=== PATIENT | male | born 1950 | race African-American/Black ===

== ENCOUNTER 2017-03-01 07:58 | Emergency (ER) | payer OTHER ==
[~2017-03-01] VITALS: Ht 157.5 cm; Wt 88.4 kg
[~2017-03-01 07:58] MED LIST: AMLODIPINE BESY10 MG PO; ASPIRIN325 MG PO; ATARAX,VISTARIL25 MG PO; ATORVASTATIN CA10 MG PO; CLOPIDOGREL75 MG PO; LITE COAT ASPI325 M1 PO; LOSARTAN-HCTZ1 EACH PO; NAPROXEN SODIU550 MG PO; PLAVIX75 MG PO
[2017-03-01 09:10] LABS: HEMATOCRIT 40.7 % (38.0-50.0); MCH 29.6 PG (29.0-34.0); MCHC 34.4 G/DL (30.0-36.0); MEAN PLAT.VOLUME 9.4 uM^3 (9.0-12.4); PLATELET COUNT 254 K/uL (156-360); RBC DIS.WIDTH-CV 13.2 % (11.8-14.6); RBC DIS.WIDTH-SD 41.1 % (39-53); RED BLOOD COUNT 4.73 M/uL (4.00-5.50); WHITE BLOOD COUNT 8.7 K/uL (4.1-10.2)
[2017-03-01 09:20] LABS: INTER. NORMALIZED RATIO 1.1; PROTHROMBIN TIME 10.9 (9.2-11.2); PTT 24.3 (25-32)
[2017-03-01 09:37] LABS: CHLORIDE 107 mEq/L (99-109); POTASSIUM 3.5 mEq/L (3.7-5.4); SODIUM 140 mEq/L (136-147)
[2017-03-01 09:42] LABS: ANION GAP 9 MEQ/L (2-14); GFR ESTIMATE (CALCULATED) > 59 mL/min/
[2017-03-01 09:43] LABS: UREA NITROGEN (BUN) 15 mg/dL (9-23)
[2017-03-01 09:51] LABS: TROP-I INTERPRETATION NEGATIVE; TROPONIN-I < 0.01 ng/mL (0.0-0.30)
[2017-03-01 10:24] LABS: GLUCOSE 95 mg/dL (70-99)
[2017-03-01] MEDS ORDERED: TRAMADOL HCL50 MG PO (11:06)
[2017-03-01] MEDS ORDERED: NAPROSYN500 MG PO (11:06)
[2017-03-01 11:22] VITALS: BP 109/76
== END 2017-03-01 11:23 | disposition home or self-care (01) ==
LOC: EME 07:58
PROVIDERS: Physician Assistant
DX: M79.89 Other specified soft tissue disorders (principal); R07.9 Chest pain, unspecified; R06.02 Shortness of breath
CPT/HCPCS: 71020; 80048; 83880; 84484; 85027; 85610; 85730; 93005; 93971; 99281; 99285

== ENCOUNTER 2017-03-15 16:54 | Emergency (ER) | payer OTHER ==
[~2017-03-15] VITALS: Ht 157.5 cm; Wt 86.2 kg
[~2017-03-15 16:54] MED LIST changes: +NAPROSYN500 MG PO; +TRAMADOL HCL50 MG PO
[2017-03-15] MEDS ORDERED: PERCOCET 5/31 TABLET PO (20:58)
[2017-03-15 21:02] VITALS: BP 137/85
== END 2017-03-15 21:04 | disposition home or self-care (01) ==
LOC: EME 16:54
DX: M54.32 Sciatica, left side (principal); M79.605 Pain in left leg; Z87.891 Personal history of nicotine dependence
CPT/HCPCS: 72100; 99281; 99284; J1100

== ENCOUNTER 2017-06-21 08:32 | Observation (INO) | payer OTHER ==
[~2017-06-21] VITALS: Ht 157.5 cm; Wt 86.8 kg
[~2017-06-21 08:32] MED LIST changes: +PERCOCET 5/31 TABLET PO
[2017-06-21] MEDS ORDERED: LIDODERM 5% P1 PATCH TD (10:03)
[2017-06-21 10:31] LABS: HEMATOCRIT 38.2 % (38.0-50.0); MCV 88.2 FL (86-99); MEAN PLAT.VOLUME 8.9 uM^3 (9.0-12.4); PLATELET COUNT 241 K/uL (156-360); RBC DIS.WIDTH-CV 14.2 % (11.8-14.6); RBC DIS.WIDTH-SD 45.9 % (39-53); RED BLOOD COUNT 4.33 M/uL (4.00-5.50); WHITE BLOOD COUNT 9.6 K/uL (4.1-10.2)
[2017-06-21 10:38] LABS: CHLORIDE 100 mEq/L (99-109); SODIUM 135 mEq/L (136-147)
[2017-06-21 10:40] LABS: GLUCOSE 95 mg/dL (70-99)
[2017-06-21 10:41] LABS: ANION GAP 9 MEQ/L (2-14)
[2017-06-21 10:44] LABS: GFR ESTIMATE (CALCULATED) > 59 mL/min/
[2017-06-21 10:45] LABS: UREA NITROGEN (BUN) 14 mg/dL (9-23)
[2017-06-21 10:57] LABS: ADD MIUA? NO; BILIRUBIN NEGATIVE; BLOOD NEGATIVE; COLOR STRAW ((YELLOW)); GLUCOSE (STRIP) NEGATIVE; KETONES NEGATIVE; LEUKOCYTES NEGATIVE; NITRITE NEGATIVE; PROTEIN (STRIP) NEGATIVE; SPECIFIC GRAVITY 1.014 (1.000-1.030); UROBILINOGEN 0.2 MG/DL (0.2-1.0)
[2017-06-21 12:36] LABS: C-REACTIVE PROTEIN < 1.0 MG/L (0-10)
[2017-06-21 15:50] VITALS: BP 122/75
[2017-06-21 19:51] VITALS: BP 100/61
[2017-06-22 00:16] VITALS: BP 98/62
[2017-06-22 04:31] VITALS: BP 103/59
[2017-06-22 07:08] LABS: HEMATOCRIT 40.9 % (38.0-50.0); MCH 30.5 PG (29.0-34.0); MCHC 34.2 G/DL (30.0-36.0); MCV 89.1 FL (86-99); MEAN PLAT.VOLUME 9.5 uM^3 (9.0-12.4); PLATELET COUNT 271 K/uL (156-360); RBC DIS.WIDTH-CV 14.3 % (11.8-14.6); RBC DIS.WIDTH-SD 46.1 % (39-53); RED BLOOD COUNT 4.59 M/uL (4.00-5.50); WHITE BLOOD COUNT 24.6 K/uL (4.1-10.2)
[2017-06-22 07:32] VITALS: BP 113/68
[2017-06-22 07:32] LABS: ANION GAP 12 MEQ/L (2-14); CHLORIDE 100 MEQ/L (99-109); GFR ESTIMATE (CALCULATED) > 59 mL/min/; GLUCOSE 92 mg/dL (70-99); POTASSIUM 4.4 MEQ/L (3.7-5.4); SAMPLE HEMOLYSIS CHECK 0; SAMPLE ICTERIC CHECK 0; SAMPLE LIPEMIA CHECK 0; SODIUM 135 MEQ/L (136-147)
[2017-06-22 07:36] LABS: UREA NITROGEN (BUN) 22 mg/dL (9-23)
[2017-06-22 11:30] VITALS: BP 136/78
[2017-06-22] MEDS ORDERED: LYRICA50 MG PO (13:58)
[2017-06-22 16:08] VITALS: BP 101/57
[2017-06-23 00:31] VITALS: BP 103/63
[2017-06-23 04:23] VITALS: BP 115/75
[2017-06-23 07:52] VITALS: BP 124/77
[2017-06-23] MEDS ORDERED: ASPIRIN81 M2 PO (10:10)
[2017-06-23] MEDS ORDERED: ATARAX,VISTARIL25 MG PO (10:11)
[2017-06-23] MEDS ORDERED: ENDOCET 7.5-321 EACH PO (10:13)
[2017-06-23] MEDS ORDERED: HYDROCHLOROTH12.5 M3 PO (10:13)
[2017-06-23] MEDS ORDERED: FLONASE16 G1 BOTH NARES (10:13)
[2017-06-23] MEDS ORDERED: METHOCARBAMOL500 MG PO (10:14)
[2017-06-23] MEDS ORDERED: GABAPENTIN300 MG PO (10:15)
[2017-06-23] MEDS ORDERED: VITAMIN B-625 MG PO (10:16)
[2017-06-23 12:16] VITALS: BP 92/56
[2017-06-23] MEDS ORDERED: CYCLOBENZAPRINE10 MG PO (13:18)
[2017-06-23 16:00] VITALS: BP 92/50
[2017-06-23 19:21] VITALS: BP 128/67
[2017-06-24 04:10] VITALS: BP 101/65
[2017-06-24 08:40] VITALS: BP 118/71
[2017-06-24 11:48] VITALS: BP 124/68
== END 2017-06-24 13:28 | disposition home or self-care (01) ==
LOC: EME 08:32 → 5WEST 14:58 → EDOF 14:58 → ENRESERV 15:03 → 5WEST 15:46 → ENPENDDIS 06-24 13:15 → 5WEST 06-24 13:28
PROVIDERS: Internal Medicine; Nurse Practitioner Family
DX: M51.17 Intervertebral disc disorders with radiculopathy, lumbosacral region (principal); M48.06 Spinal stenosis, lumbar region; E88.2 Lipomatosis, not elsewhere classified; M79.605 Pain in left leg; G89.29 Other chronic pain; K59.00 Constipation, unspecified; I10 Essential (primary) hypertension; Z86.73 Personal history of transient ischemic attack (TIA), and cerebral infarction without residual deficits; Z79.02 Long term (current) use of antithrombotics/antiplatelets; Z87.898 Personal history of other specified conditions; Z79.82 Long term (current) use of aspirin
CPT/HCPCS: 72148; 80048; 81003; 85027; 86140; 97530 GO; 99281; 99285; G0378; G8978 GP CI; G8979 GP CH; G8980 GP CI; G8987 GO CJ; G8988 CI; G8989 GO CI; J1100; J1200; J1650; J1885; J2270; J2930; J3010

== ENCOUNTER 2017-06-30 23:04 | Emergency (ER) | payer OTHER ==
[~2017-06-30] VITALS: Ht 157.5 cm; Wt 84.8 kg
[~2017-06-30 23:04] MED LIST changes: +ASPIRIN81 M2 PO; +CYCLOBENZAPRINE10 MG PO; +ENDOCET 7.5-321 EACH PO; +FLONASE16 G1 BOTH NARES; +GABAPENTIN300 MG PO; +HYDROCHLOROTH12.5 M3 PO; +LIDODERM 5% P1 PATCH TD; +LYRICA50 MG PO; +METHOCARBAMOL500 MG PO; +VITAMIN B-625 MG PO
[2017-07-01 00:11] LABS: ADD MIUA? YES; BILIRUBIN NEGATIVE; BLOOD NEGATIVE; COLOR YELLOW ((YELLOW)); GLUCOSE (STRIP) NEGATIVE; KETONES NEGATIVE; LEUKOCYTES NEGATIVE; NITRITE NEGATIVE; PROTEIN (STRIP) NEGATIVE; SPECIFIC GRAVITY 1.019 (1.000-1.030); UROBILINOGEN 0.2 MG/DL (0.2-1.0)
[2017-07-01 00:17] LABS: BACTERIA NONE SEEN /HPF; EPITHELIAL CELLS NONE SEEN /HPF; MUCUS TRACE /LPF; RED BLOOD CELLS 0-5 /HPF (0-5); UCUL ADDED? NO; WHITE BLOOD CELLS 0-5 /HPF (0-5)
[2017-07-01] MEDS ORDERED: DILAUDID2 MG PO (00:39)
[2017-07-01 01:39] VITALS: BP 140/89
== END 2017-07-01 01:43 | disposition home or self-care (01) ==
LOC: EME → EDBD 23:04 → EME 23:04
PROVIDERS: Emergency Medicine
DX: M54.42 Lumbago with sciatica, left side (principal); G89.29 Other chronic pain; I10 Essential (primary) hypertension; Z86.73 Personal history of transient ischemic attack (TIA), and cerebral infarction without residual deficits; Z87.891 Personal history of nicotine dependence
CPT/HCPCS: 81003; 99281; 99284

== ENCOUNTER 2017-07-06 06:45 | Emergency (ER) | payer OTHER ==
[~2017-07-06] VITALS: Ht 157.5 cm; Wt 84.9 kg
[~2017-07-06 06:45] MED LIST changes: +DILAUDID2 MG PO
[2017-07-06] MEDS ORDERED: LYRICA100 MG PO (07:22)
[2017-07-06] MEDS ORDERED: FLEXERIL10 MG PO (07:22)
[2017-07-06] MEDS ORDERED: LIDODERM 5% P1 PATCH TD (07:22)
[2017-07-06 07:55] VITALS: BP 107/78
== END 2017-07-06 07:56 | disposition home or self-care (01) ==
LOC: EME 06:45
DX: M54.32 Sciatica, left side (principal); Z95.1 Presence of aortocoronary bypass graft; Z79.82 Long term (current) use of aspirin
CPT/HCPCS: 99281; 99284

== ENCOUNTER 2017-07-12 22:38 | Emergency (ER) | payer OTHER ==
[~2017-07-12] VITALS: Ht 157.5 cm; Wt 86.3 kg
[~2017-07-12 22:38] MED LIST changes: +FLEXERIL10 MG PO; +LYRICA100 MG PO
[2017-07-13] MEDS ORDERED: PERCOCET 5/31 TABLET PO (01:25)
[2017-07-13] MEDS ORDERED: SKELAXIN800 MG PO (01:25)
[2017-07-13 02:00] VITALS: BP 111/85
== END 2017-07-13 02:07 | disposition home or self-care (01) ==
LOC: EME 22:38
DX: M54.42 Lumbago with sciatica, left side (principal); E78.5 Hyperlipidemia, unspecified; I10 Essential (primary) hypertension; Z86.73 Personal history of transient ischemic attack (TIA), and cerebral infarction without residual deficits; Z79.82 Long term (current) use of aspirin
CPT/HCPCS: 99281; 99284; J3010

== ENCOUNTER 2017-08-17 10:40 | Day surgery (SDC) | payer OTHER ==
[~2017-08-17] VITALS: Ht 157.5 cm; Wt 86.2 kg
[~2017-08-17 10:40] MED LIST changes: +HYZAAR 50-121 TABLET PO; +LIPITOR10 MG PO; +MICROZIDE12.5 M1 PO; +NORVASC10 MG PO; +SKELAXIN800 MG PO
[2017-08-17] MEDS ORDERED: MOTRIN600 MG PO (11:08)
== END 2017-08-17 12:10 | disposition home or self-care (01) ==
LOC: PAIN 10:40 → SDC 11:15 → PAIN 12:10
DX: M47.816 Spondylosis without myelopathy or radiculopathy, lumbar region (principal); M54.5 Low back pain; G89.29 Other chronic pain; M51.36 Other intervertebral disc degeneration, lumbar region; M48.061 Spinal stenosis, lumbar region without neurogenic claudication; E66.3 Overweight; Z68.34 Body mass index [BMI] 34.0-34.9, adult; I10 Essential (primary) hypertension; E78.5 Hyperlipidemia, unspecified; Z79.01 Long term (current) use of anticoagulants; Z86.73 Personal history of transient ischemic attack (TIA), and cerebral infarction without residual deficits; Z87.891 Personal history of nicotine dependence; Z79.891 Long term (current) use of opiate analgesic; Z79.82 Long term (current) use of aspirin; Z79.02 Long term (current) use of antithrombotics/antiplatelets
CPT/HCPCS: J1030; J2250; J3010; S0020

== ENCOUNTER 2017-09-08 07:42 | Day surgery (SDC) | payer OTHER ==
[~2017-09-08] VITALS: Ht 157.5 cm; Wt 86.2 kg
[~2017-09-08 07:42] MED LIST changes: +LO-DOSE ASPIRIN81 M1 PO; +MOTRIN600 MG PO
== END 2017-09-08 10:20 | disposition home or self-care (01) ==
LOC: PAIN 07:42 → SDC 08:15 → PAIN 10:20
DX: M53.3 Sacrococcygeal disorders, not elsewhere classified (principal); M46.1 Sacroiliitis, not elsewhere classified; M47.816 Spondylosis without myelopathy or radiculopathy, lumbar region; M54.41 Lumbago with sciatica, right side; G89.29 Other chronic pain; M48.061 Spinal stenosis, lumbar region without neurogenic claudication; I10 Essential (primary) hypertension; E78.5 Hyperlipidemia, unspecified; B18.2 Chronic viral hepatitis C; F43.22 Adjustment disorder with anxiety; Z79.02 Long term (current) use of antithrombotics/antiplatelets; Z87.891 Personal history of nicotine dependence; Z79.891 Long term (current) use of opiate analgesic; Z79.82 Long term (current) use of aspirin
CPT/HCPCS: J1030; J2250; J3010; S0020

== ENCOUNTER 2017-10-13 07:39 | Day surgery (SDC) | payer OTHER ==
[~2017-10-13] VITALS: Ht 157.5 cm; Wt 81.6 kg
[~2017-10-13 07:39] MED LIST changes: +ROBAXIN500 MG PO
== END 2017-10-13 09:17 | disposition home or self-care (01) ==
LOC: PAIN 07:39 → SDC 08:15 → PAIN 09:17
DX: M47.816 Spondylosis without myelopathy or radiculopathy, lumbar region (principal); G89.29 Other chronic pain; M54.5 Low back pain; M48.061 Spinal stenosis, lumbar region without neurogenic claudication; M51.36 Other intervertebral disc degeneration, lumbar region; M53.3 Sacrococcygeal disorders, not elsewhere classified; B18.2 Chronic viral hepatitis C; I10 Essential (primary) hypertension; E78.5 Hyperlipidemia, unspecified; R73.03 Prediabetes; Z87.891 Personal history of nicotine dependence
CPT/HCPCS: J1030; J3010; S0020

== ENCOUNTER → 2017-10-15 | Outpatient (CLI) | payer MEDICARE, OTHER | END | disposition home or self-care (01) | LOC: CDC 10:58 | DX: Z01.810 Encounter for preprocedural cardiovascular examination (principal); G56.02 Carpal tunnel syndrome, left upper limb; R94.31 Abnormal electrocardiogram [ECG] [EKG] | CPT/HCPCS: 93000 ==

== ENCOUNTER 2017-10-27 08:45 | Day surgery (SDC) | payer OTHER ==
[~2017-10-27] VITALS: Ht 157.5 cm; Wt 81.7 kg
== END 2017-10-27 09:59 | disposition home or self-care (01) ==
LOC: PAIN 08:45 → SDC 09:30 → PAIN 09:59
PROC: 3E0T3TZ Introduction of Destructive Agent into Peripheral Nerves and Plexi, Percutaneous Approach (ICD-10-PCS; principal; 2017-10-27)
PROC: BR161ZZ Fluoroscopy of Lumbar Facet Joint(s) using Low Osmolar Contrast (ICD-10-PCS; principal; 2017-10-27)
DX: M47.816 Spondylosis without myelopathy or radiculopathy, lumbar region (principal); M54.5 Low back pain; G89.29 Other chronic pain; M51.36 Other intervertebral disc degeneration, lumbar region; M48.061 Spinal stenosis, lumbar region without neurogenic claudication; B18.2 Chronic viral hepatitis C; I10 Essential (primary) hypertension; E78.5 Hyperlipidemia, unspecified; R73.03 Prediabetes; Z79.891 Long term (current) use of opiate analgesic; Z87.891 Personal history of nicotine dependence
CPT/HCPCS: J1030; J2250; J3010; S0020

== ENCOUNTER 2017-11-17 07:24 | Day surgery (SDC) | payer OTHER ==
[~2017-11-17] VITALS: Ht 157.5 cm; Wt 81.7 kg
== END 2017-11-17 09:18 | disposition home or self-care (01) ==
LOC: PAIN 07:24 → SDC 08:00 → PAIN 09:18
DX: M47.26 Other spondylosis with radiculopathy, lumbar region (principal); M51.16 Intervertebral disc disorders with radiculopathy, lumbar region; G89.29 Other chronic pain; M48.061 Spinal stenosis, lumbar region without neurogenic claudication; M53.3 Sacrococcygeal disorders, not elsewhere classified; E78.5 Hyperlipidemia, unspecified; I10 Essential (primary) hypertension; R73.03 Prediabetes; F41.9 Anxiety disorder, unspecified; Z87.891 Personal history of nicotine dependence; Z79.82 Long term (current) use of aspirin; Z79.891 Long term (current) use of opiate analgesic
CPT/HCPCS: J1100; J2250; J3010

== ENCOUNTER 2017-12-04 14:29 | Emergency (ER) | payer OTHER ==
[~2017-12-04] VITALS: Ht 157.5 cm; Wt 84.3 kg
[2017-12-04] MEDS ORDERED: PREDNISONE20 MG PO (19:05)
[2017-12-04] MEDS ORDERED: INDOCIN25 MG PO (19:05)
[2017-12-04 19:28] VITALS: BP 121/77
== END 2017-12-04 19:28 | disposition home or self-care (01) ==
LOC: EME 14:29
DX: M54.42 Lumbago with sciatica, left side (principal); G89.29 Other chronic pain; M51.37 Other intervertebral disc degeneration, lumbosacral region; Z98.1 Arthrodesis status; I10 Essential (primary) hypertension; E78.5 Hyperlipidemia, unspecified; Z86.73 Personal history of transient ischemic attack (TIA), and cerebral infarction without residual deficits; Z79.02 Long term (current) use of antithrombotics/antiplatelets; Z79.82 Long term (current) use of aspirin; Z87.891 Personal history of nicotine dependence
CPT/HCPCS: 72100; 99281; 99284; J3010; J7512

== ENCOUNTER 2018-03-11 09:07 | Day surgery (SDC) | payer OTHER ==
[~2018-03-11] VITALS: Ht 177.8 cm; Wt 85.3 kg
[~2018-03-11 09:07] MED LIST changes: +FLONASE SENSIM9.9 ML BOTH NARES; +INDOCIN25 MG PO; +LYRICA150 MG PO; +PERCOCET 7.51 TABLET PO; +PREDNISONE20 MG PO
[2018-03-11] MEDS ORDERED: ZANAFLEX4 M1 PO (09:56)
[2018-03-11 10:05] VITALS: BP 118/73
[2018-03-11 16:50] VITALS: BP 123/63
[2018-03-11 17:00] VITALS: BP 116/67
== END 2018-03-11 17:40 | disposition home or self-care (01) ==
LOC: SDC 09:07
PROC: 01NB0ZZ Release Lumbar Nerve, Open Approach (ICD-10-PCS; principal; 2018-03-11)
DX: M48.061 Spinal stenosis, lumbar region without neurogenic claudication (principal); M51.16 Intervertebral disc disorders with radiculopathy, lumbar region; M47.816 Spondylosis without myelopathy or radiculopathy, lumbar region; I10 Essential (primary) hypertension; E78.5 Hyperlipidemia, unspecified; B18.2 Chronic viral hepatitis C; R73.03 Prediabetes; R94.31 Abnormal electrocardiogram [ECG] [EKG]; Z79.82 Long term (current) use of aspirin; M43.26 Fusion of spine, lumbar region; Z87.891 Personal history of nicotine dependence; Z86.73 Personal history of transient ischemic attack (TIA), and cerebral infarction without residual deficits; Z79.02 Long term (current) use of antithrombotics/antiplatelets
CPT/HCPCS: 72020; 76000; J0131; J0690; J1170; J2405; J2710; J2765; J2930; J3010; J7643; S0020

== ENCOUNTER 2018-03-16 16:32 | Inpatient (IN) | payer OTHER ==
[~2018-03-16] VITALS: Ht 157.5 cm; Wt 83.5 kg
[~2018-03-16 16:32] MED LIST changes: +ZANAFLEX4 M1 PO
[2018-03-16 17:50] LABS: HEMATOCRIT 35.6 % (38.0-50.0); HEMOGLOBIN 12.8 G/DL (12.5-16.6); MCH 31.2 PG (29.0-34.0); MCV 86.8 FL (86-99); PLATELET COUNT 222 K/uL (156-360); RBC DIS.WIDTH-CV 12.5 % (11.8-14.6); RBC DIS.WIDTH-SD 39.7 % (39-53); WHITE BLOOD COUNT 12.2 K/uL (4.1-10.2)
[2018-03-16 17:59] LABS: CHLORIDE 98 mEq/L (99-109)
[2018-03-16 18:00] LABS: POTASSIUM 3.7 mEq/L (3.7-5.4); SODIUM 135 mEq/L (136-147)
[2018-03-16 18:01] LABS: GLUCOSE 102 mg/dL (70-99)
[2018-03-16 18:05] LABS: CREATININE 0.8 mg/dL (0.6-1.3); GFR ESTIMATE (CALCULATED) > 59 mL/min/ (58.99-99999)
[2018-03-16 18:06] LABS: UREA NITROGEN (BUN) 13 mg/dL (9-23)
[2018-03-16] MEDS ORDERED: LIPITOR10 MG PO (22:42)
[2018-03-16] MEDS ORDERED: DIAZEPAM5 MG PO (22:45)
[2018-03-16] MEDS ORDERED: ATARAX,VISTARIL25 MG PO (23:24)
[2018-03-16] MEDS ORDERED: MICROZIDE12.5 M1 PO (23:24)
[2018-03-16] MEDS ORDERED: MIRALAX17 GM PO (23:24)
[2018-03-17 01:42] VITALS: BP 121/71
[2018-03-17 02:57] LABS: APPEARANCE CLEAR ((CLEAR)); BILIRUBIN NEGATIVE; BLOOD NEGATIVE; COLOR YELLOW ((YELLOW)); GLUCOSE (STRIP) NEGATIVE; KETONES NEGATIVE; LEUKOCYTES NEGATIVE; NITRITE NEGATIVE; PROTEIN (STRIP) NEGATIVE; SPECIFIC GRAVITY 1.008 (1.000-1.030); UCUL ADDED? NO; UROBILINOGEN 0.2 MG/DL (0.2-1.0)
[2018-03-17 06:45] VITALS: BP 132/84
[2018-03-17 10:34] VITALS: BP 116/74
[2018-03-17 15:27] VITALS: BP 138/66
[2018-03-17 20:15] VITALS: BP 116/66
[2018-03-18 00:33] VITALS: BP 98/57
[2018-03-18 06:08] LABS: HEMATOCRIT 34.9 % (38.0-50.0); HEMOGLOBIN 11.9 G/DL (12.5-16.6); MCH 30.3 PG (29.0-34.0); MCHC 34.1 G/DL (30.0-36.0); MCV 88.8 FL (86-99); PLATELET COUNT 224 K/uL (156-360); RBC DIS.WIDTH-CV 12.9 % (11.8-14.6); RED BLOOD COUNT 3.93 M/uL (4.00-5.50); WHITE BLOOD COUNT 10.2 K/uL (4.1-10.2)
[2018-03-18 06:33] LABS: CHLORIDE 103 MEQ/L (99-109); CREATININE 0.9 MG/DL (0.6-1.3); GFR ESTIMATE (CALCULATED) > 59 mL/min/ (58.99-99999); GLUCOSE 99 mg/dL (70-99); SODIUM 137 MEQ/L (136-147); UREA NITROGEN (BUN) 16 mg/dL (9-23)
[2018-03-18 06:34] LABS: POTASSIUM 4.5 MEQ/L (3.7-5.4)
[2018-03-18 07:56] VITALS: BP 112/62
[2018-03-18 16:00] VITALS: BP 126/72
[2018-03-18 23:08] VITALS: BP 100/65
[2018-03-19 07:40] VITALS: BP 126/72
[2018-03-19 16:36] VITALS: BP 102/68
[2018-03-20 00:42] VITALS: BP 116/75
[2018-03-20 06:38] LABS: HEMATOCRIT 38.2 % (38.0-50.0); HEMOGLOBIN 12.8 G/DL (12.5-16.6); MCH 29.7 PG (29.0-34.0); MCHC 33.5 G/DL (30.0-36.0); MCV 88.6 FL (86-99); PLATELET COUNT 283 K/uL (156-360); RBC DIS.WIDTH-CV 12.1 % (11.8-14.6); RBC DIS.WIDTH-SD 39.9 % (39-53); RED BLOOD COUNT 4.31 M/uL (4.00-5.50); WHITE BLOOD COUNT 9.1 K/uL (4.1-10.2)
[2018-03-20 07:00] LABS: CHLORIDE 105 MEQ/L (99-109); CREATININE 0.7 MG/DL (0.6-1.3); GFR ESTIMATE (CALCULATED) > 59 mL/min/ (58.99-99999); GLUCOSE 93 mg/dL (70-99); POTASSIUM 4.5 MEQ/L (3.7-5.4); SODIUM 137 MEQ/L (136-147); UREA NITROGEN (BUN) 11 mg/dL (9-23)
[2018-03-20 07:10] VITALS: BP 115/63
[2018-03-20] MEDS ORDERED: VITAMIN D-32000 UNI2 PO (14:28)
[2018-03-20] MEDS ORDERED: SENNA LAX8.6 MG PO (14:28)
[2018-03-20] MEDS ORDERED: DOCUSATE SODIU100 MG PO (14:28)
[2018-03-20] MEDS ORDERED: LIDOCAINE700 MG TP (14:28)
[2018-03-20] MEDS ORDERED: CYCLOBENZAPRINE10 MG PO (14:28)
== END 2018-03-20 15:40 | disposition home or self-care (01) | DRG 948 ==
LOC: EME 16:32 → 5EAST 23:53 → EDOF 23:53 → ENRESERV 23:55 → CANRESERV 23:55 → ENRESERV 03-17 00:13 → 5EAST 03-17 01:19
PROVIDERS: Emergency Medicine; Hospitalist; Internal Medicine; Physician Assistant Medical
DX: G89.18 Other acute postprocedural pain (principal); M62.830 Muscle spasm of back; G89.29 Other chronic pain; M48.061 Spinal stenosis, lumbar region without neurogenic claudication; M54.16 Radiculopathy, lumbar region; M54.32 Sciatica, left side; K59.00 Constipation, unspecified; I10 Essential (primary) hypertension; E78.5 Hyperlipidemia, unspecified; B19.20 Unspecified viral hepatitis C without hepatic coma; Z98.890 Other specified postprocedural states; Z98.1 Arthrodesis status; Z86.73 Personal history of transient ischemic attack (TIA), and cerebral infarction without residual deficits; Z79.82 Long term (current) use of aspirin; Z79.02 Long term (current) use of antithrombotics/antiplatelets; Z91.018 Allergy to other foods; F41.9 Anxiety disorder, unspecified; Z87.891 Personal history of nicotine dependence; F19.11 Other psychoactive substance abuse, in remission; F10.11 Alcohol abuse, in remission; Z82.49 Family history of ischemic heart disease and other diseases of the circulatory system; Z79.899 Other long term (current) drug therapy; E66.3 Overweight; Z68.33 Body mass index [BMI] 33.0-33.9, adult
CPT/HCPCS: 72131; 74176; 80048; 81003; 82306; 85027; 99281; 99285; G0378; J1100; J1644; J1885; J2405; J2590; J3010; J7030